=== PATIENT | male | born 1970 | race Caucasian/White ===

== ENCOUNTER 2016-05-21 14:05 | Emergency (ER) | payer MEDICAID ==
[2015-08-23 06:10] VITALS: BMI 32.7
[~2016-05-21 14:05] MED LIST: CYCLOBENZAPRINE10 MG PO; DESERYL100 MG PO; PERCOCET 10/3251 TA1 PO
== END 2016-05-21 16:16 | disposition home or self-care (01) ==
LOC: D.ER 14:05
DX: M54.5 Low back pain (principal)